=== PATIENT | female | born 1965 | race African-American/Black ===

== ENCOUNTER 2019-02-16 03:02 | Emergency (ER) | payer SELFPAY ==
[~2019-02-16] VITALS: Ht 170.2 cm; Wt 90.7 kg
[2019-02-16] MEDS ORDERED: ONDANSETRON PF 4 MG/2 ML VIAL. IV ONE (03:30)
[2019-02-16] MEDS ORDERED: MECLIZINE HCL 12.5 MG TABLET. PO ONE (03:30)
[2019-02-16] MEDS ORDERED: IV NORMAL SALINE 1000ML BAG 1,000 ML IV ONE (03:30)
[2019-02-16 04:34] LABS: BASO # 0.1 x10^3/uL (0.0-0.2); BASO % 1 % (0-3); EOS # 0.1 x10^3/uL (0.0-0.7); EOS % 2 % (0-3); HEMATOCRIT 40.9 % (36.0-47.0); HEMOGLOBIN 13.3 g/dL (12.0-15.5); LYMPH # 3.4 x10^3/uL (1.0-4.8); LYMPH % 44 % (24-48); MEAN CORPUSCULAR HEMOGLOBIN 28 pg (25-35); MEAN CORPUSCULAR HGB CONC 33 g/dL (31-37); MEAN CORPUSCULAR VOLUME 87 fL (79-100); MONO # 0.5 x10^3/uL (0.0-1.1); MONO % 6 % (0-9); NEUT # 3.7 x10^3uL (1.8-7.7); NEUT % 47 % (31-73); PLATELET COUNT 221 x10^3/uL (140-400); RED CELL DISTRIBUTION WIDTH 13.4 % (11.5-14.5); WHITE BLOOD COUNT 7.8 x10^3/uL (4.0-11.0)
[2019-02-16 04:43] LABS: CALCIUM 9.2 mg/dL (8.5-10.1); CREATININE 0.7 mg/dL (0.6-1.0); GFR 106.3; POTASSIUM 3.8 mmol/L (3.5-5.1)
[2019-02-16 04:44] LABS: BILIRUBIN,URINE NEGATIVE (NEG); CLARITY,URINE CLEAR; COLOR,URINE YELLOW; NITRITE,URINE NEGATIVE (NEG); PROTEIN,URINE NEGATIVE (NEG-TRACE)
[2019-02-16] MEDS ORDERED: IPRATRPIUM/ALBUTEROL 0.5/2.5MG 3 ML NEBU. NEB ONE ×2 (04:45→05:30)
[2019-02-16 04:49] LABS: ALBUMIN 3.2 g/dL (3.4-5.0); ALBUMIN/GLOBULIN RATIO 0.8 (1.0-1.7); TOTAL BILIRUBIN 0.2 mg/dL (0.2-1.0)
[2019-02-16 05:00] LABS: BACTERIA,URINE FEW /HPF (0-FEW); RBC,URINE OCC /HPF (0-2); SQUAMOUS EPITHELIAL CELL,UR FEW /LPF
[2019-02-16] MEDS ORDERED: KETOROLAC 15 MG/ML VIAL. IV ONE (05:30)
[2019-02-16] MEDS ORDERED: MECL25TA3 PO (05:47)
--- NOTE | 2019-02-16 05:52 | PHYS DOC ---
Past Medical History Past Medical History: Asthma, Diabetes-Type II Past Surgical History: Hysterectomy Alcohol Use: None Drug Use: None Adult General Chief Complaint Chief Complaint: BLOOD SUGAR PROBLEM HPI HPI Patient is a 54 year old female who presents brought in by ambulance with a chief, dizziness per chief complaint dizzy all day today it is worse when she lays down flat or moves her head in a certain way. Patient has no chest pain she has had some shortness of breath she has a history of asthma she's been little bit more short of breath than normal. No loss of consciousness she was worried because the blood sugar was elevated over 200 so she called 911 for evaluation given how she was feeling no vomiting no abdominal pain patient also has a headache Review of Systems Review of Systems Constitutional: Denies fever or chills [] Eyes: Denies change in visual acuity, redness, or eye pain [] Cardiovascular: No additional information not addressed in HPI [] Musculoskeletal: Denies back pain or joint pain [] Integument: Denies rash or skin lesions [] Neurologic: Denies , focal weakness or sensory changes [] All other systems were reviewed and found to be within normal limits, except as documented in this note. Current Medications Current Medications Current Medications Medications (Trade) Dose Ordered Sig/Brooke Start Time Stop Time Status Last Admin Dose Admin Albuterol/ Ipratropium (Duoneb) 3 ml 1X ONCE 02/16/19 05:30 02/16/19 05:31 DC 02/16/19 05:30 3 ML Ketorolac Tromethamine (Toradol 15mg Vial) 15 mg 1X ONCE 02/16/19 05:30 02/16/19 05:31 DC Lorazepam (Ativan) 0.5 mg 1X ONCE 02/16/19 05:30 02/16/19 05:31 DC Meclizine HCl (Antivert) 25 mg 1X ONCE 02/16/19 03:30 02/16/19 03:54 DC 02/16/19 04:32 25 MG Ondansetron HCl (Zofran) 4 mg 1X ONCE 02/16/19 03:30 02/16/19 03:54 DC 02/16/19 04:32 4 MG Sodium Chloride 1,000 ml @ 1,000 mls/hr 1X ONCE 02/16/19 03:30 02/16/19 04:29 DC 02/16/19 04:33 1,000 MLS/HR Allergies Allergies Allergies Coded Allergies Type Severity Reaction Last Updated Verified pneumococcal vaccine Allergy Mild Nausea and Vomiting 02/16/19 Yes Physical Exam Physical Exam Constitutional: Well developed, well nourished, no acute distress, non-toxic appearance. [] HENT: Normocephalic, atraumatic, bilateral external ears normal, oropharynx moist, no oral exudates, nose normal. [] Eyes: PERRLA, EOMI, conjunctiva normal, no discharge. [] Neck: Normal range of motion, no tenderness, supple, no stridor. [] Cardiovascular:Heart rate regular rhythm, no murmur [] Lungs & Thorax: Patient has wheezing bilateral lung kelsey otherwise speaking full sentences no accessory muscle use Abdomen: Bowel sounds normal, soft, no tenderness, no masses, no pulsatile masses. [] Skin: Warm, dry, no erythema, no rash. [] Back: No tenderness, no CVA tenderness. [] Extremities: No tenderness, no cyanosis, no clubbing, ROM intact, no edema. [] Neurologic: Alert and oriented X 3, normal motor function, normal sensory function, no focal deficits noted. [][id number] intact bilaterally extraocular movements are intact no nystagmus Psychologic: Affect normal, judgement normal, mood normal. [] Current Patient Data Vital Signs Vital Signs Date Time Temp Pulse Resp B/P (MAP) Pulse Ox O2 Delivery O2 Flow Rate FiO2 02/16/19 05:37 98 Room Air 02/16/19 03:02 98.8 19 18 131/88 (102) 98.8 Lab Values Laboratory Tests Test 02/16/19 03:08 02/16/19 04:30 Glucose (Fingerstick) 204 mg/dL (70-99) H White Blood Count 7.8 x10^3/uL (4.0-11.0) Red Blood Count 4.70 x10^6/uL (3.50-5.40) Hemoglobin 13.3 g/dL (12.0-15.5) Hematocrit 40.9 % (36.0-47.0) Mean Corpuscular Volume 87 fL (79-100) Mean Corpuscular Hemoglobin 28 pg (25-35) Mean Corpuscular Hemoglobin Concent 33 g/dL (31-37) Red Cell Distribution Width 13.4 % (11.5-14.5) Platelet Count 221 x10^3/uL (140-400) Neutrophils (%) (Auto) 47 % (31-73) Lymphocytes (%) (Auto) 44 % (24-48) Monocytes (%) (Auto) 6 % (0-9) Eosinophils (%) (Auto) 2 % (0-3) Basophils (%) (Auto) 1 % (0-3) Neutrophils # (Auto) 3.7 x10^3uL (1.8-7.7) Lymphocytes # (Auto) 3.4 x10^3/uL (1.0-4.8) Monocytes # (Auto) 0.5 x10^3/uL (0.0-1.1) Eosinophils # (Auto) 0.1 x10^3/uL (0.0-0.7) Basophils # (Auto) 0.1 x10^3/uL (0.0-0.2) Urine Collection Type Void Urine Color Yellow Urine Clarity Clear Urine pH 7.0 Urine Specific [place] 1.020 Urine Protein Negative mg/dL (NEG-TRACE) Urine Glucose (UA) Negative mg/dL (NEG) Urine Ketones (Stick) Negative mg/dL (NEG) Urine Blood Negative (NEG) Urine Nitrite Negative (NEG) Urine Bilirubin Negative (NEG) Urine Urobilinogen Dipstick 1.0 mg/dL (0.2 mg/dL) Urine Leukocyte Esterase Negative (NEG) Urine RBC Occ /HPF (0-2) Urine WBC 1-4 /HPF (0-4) Urine Squamous Epithelial Cells Few /LPF Urine Bacteria Few /HPF (0-FEW) Urine Mucus Slight /LPF Sodium Level 140 mmol/L (136-145) Potassium Level 3.8 mmol/L (3.5-5.1) Chloride Level 104 mmol/L (98-107) Carbon Dioxide Level 29 mmol/L (21-32) Anion Gap 7 (6-14) Blood Urea Nitrogen 11 mg/dL (7-20) Creatinine 0.7 mg/dL (0.6-1.0) Estimated GFR (Cockcroft-Gault) 106.3 BUN/Creatinine Ratio 16 (6-20) Glucose Level 226 mg/dL (70-99) H Calcium Level 9.2 mg/dL (8.5-10.1) Total Bilirubin 0.2 mg/dL (0.2-1.0) Aspartate Amino Transferase (AST) 22 U/L (15-37) Alanine Aminotransferase (ALT) 22 U/L (14-59) Alkaline Phosphatase 99 U/L (46-116) Troponin I Quantitative < 0.017 ng/mL (0.000-0.055) Total Protein 7.0 g/dL (6.4-8.2) Albumin 3.2 g/dL (3.4-5.0) L Albumin/Globulin Ratio 0.8 (1.0-1.7) L Lipase 124 U/L (73-393) Laboratory Tests 02/16/19 04:30 Laboratory Tests 02/16/19 04:30 EKG EKG []EKG shows a normal sinus rhythm rate of 86 no acute ischemic changes noted borderline ST change in V2 but does not meet criteria isolated lead only no STEMI is seen Radiology/Procedures Radiology/Procedures [] Impressions: Patient has no obvious evidence of pneumonia exam is somewhat limited by body habitus possible mild cardiomegaly Course & Med Decision Making Course & Med Decision Making Pertinent Labs and Imaging studies reviewed. (See chart for details) []54-year-old female prior history of asthma and diabetes who is presenting with some mild hyperglycemia and also a sensation of dizziness best described to me as vertigo room spinning with head position objective neurologic exam is normal there are no asymmetric findings. Patient is given IV fluids Toradol Ativan and meclizine in the ER with some improvement. Albuterol was also given for her wheezing chest x-ray did not show any definite pneumonia lab work was basically unremarkable except for the hyperglycemia she was encouraged to continue her insulin prescription for meclizine was provided reassurance was discussed no evidence of acute cardiac etiology with negative troponin and EKG after greater than 12 hours of symptoms Dragon Disclaimer Dragon Disclaimer This electronic medical record was generated, in whole or in part, using a voice recognition dictation system. Departure Departure Impression: Primary Impression: Dizziness Disposition: 01 HOME, SELF-CARE Condition: STABLE Patient Instructions: Dizziness, [id number] Scripts Meclizine Hcl (MECLIZINE HCL) 25 Mg Tablet 25 MG PO PRN TID PRN for DIZZINESS, #30 dizziness Prov: DORINA LONDON MD 02/16/19 DORINA LONDON MD Feb 16, 2019 05:52
[2019-02-16 07:00] VITALS: BP 131/87
[2019-02-16] MEDS ORDERED: PROCHLORPERAZINE 10 MG/2 ML VIAL. IV ONE (07:00)
[2019-02-16] MEDS ORDERED: diphenhydrAMINE 50 MG/ML VIAL IVP ONE (07:00)
--- NOTE | 2019-02-16 07:45 | RAD ---
CT of the head without contrast, 02/16/2019: HISTORY: Headache, dizziness, hypertension The ventricles are within normal limits in size. There is no shift of the midline structures. There is no evidence of acute intracranial hemorrhage or mass effect. IMPRESSION: No acute intracranial abnormality is detected. RS Compliance Statement: One or more of the following individualized dose reduction techniques were utilized for this examination: 1. Automated exposure control 2. Adjustment of the mA and/or kV according to patient size 3. Use of iterative reconstruction technique Electronically signed by: Perry Rios MD (02/16/2019 7:42 AM) [facility]
--- NOTE | 2019-02-16 08:00 | RAD ---
Single view of the chest. 02/16/2019 3:01 AM Indication: Shortness of breath Comparison: None Findings: Low lung volumes are noted which augment the cardiomediastinal silhouette and pulmonary vasculature. Patient's body habitus also somewhat limits exam. Left basilar atelectasis or small effusion not excluded. Mild central vascular congestion may be present. No pneumothorax is identified. Bony thorax is grossly intact. IMPRESSION: Somewhat limited study with possible mild left basilar atelectasis or trace effusion, and mild central vascular congestion. Consider follow-up two-view chest radiograph as clinically indicated Electronically signed by: Jean Paul Mauricio MD (02/16/2019 7:58 AM) [id number]
--- NOTE | 2019-02-16 09:01 | EKG ---
[facility] [address] [place] [id number] Test Date: 2019-02-16 Test Time: 03:15:26 Pat Name: TAMEKA LOZANO Department: Room: Gender: F Hr Associate: : 1965 Requested By: DORINA LONDON Order Number: [id number] Reading MD: Siddhartha Ward Measurements Intervals [place] Rate: 86 P: 44 VA: 140 QRS: 16 QRSD: 74 T: 34 QT: 358 QTc: 431 Interpretive Statements SINUS RHYTHM Electronically Signed On 02-20-2019 13:30:32 CDT by Siddhartha Ward
== END 2019-02-16 09:01 | disposition home or self-care (01) ==
LOC: ER 03:02
DX: R42 Dizziness and giddiness (principal); R06.02 Shortness of breath; R51 Headache; E11.9 Type 2 diabetes mellitus without complications; J45.909 Unspecified asthma, uncomplicated; Z88.7 Allergy status to serum and vaccine
CPT/HCPCS: 36415; 70450; 71045; 80053; 81001; 82962; 83690; 84484; 85025; 93005; 94640; 96361; 96374; 96375; 99285; J0780; J1200; J2060; J2405; J7030; J7620; J8597

== ENCOUNTER 2019-10-23 00:02 | Emergency (ER) | payer SELFPAY ==
[~2019-10-23] VITALS: Ht 167.6 cm; Wt 90.7 kg
[~2019-10-23 00:02] MED LIST: MECL25TA3 PO
[2019-10-23] MEDS ORDERED: IV NORMAL SALINE 1000ML BAG 1,000 ML IV ONE (00:30)
[2019-10-23] MEDS ORDERED: INSULIN REGULAR 100 UNIT/ML 3ML VIAL. SQ ONE (00:30)
[2019-10-23 00:54] LABS: BASO # 0.1 x10^3/uL (0.0-0.2); BASO % 1 % (0-3); EOS # 0.1 x10^3/uL (0.0-0.7); EOS % 2 % (0-3); HEMATOCRIT 40.4 % (36.0-47.0); HEMOGLOBIN 13.3 g/dL (12.0-15.5); LYMPH # 2.8 x10^3/uL (1.0-4.8); LYMPH % 44 % (24-48); MEAN CORPUSCULAR HEMOGLOBIN 28 pg (25-35); MEAN CORPUSCULAR HGB CONC 33 g/dL (31-37); MEAN CORPUSCULAR VOLUME 86 fL (79-100); MONO # 0.4 x10^3/uL (0.0-1.1); MONO % 7 % (0-9); NEUT % 46 % (31-73); PLATELET COUNT 244 x10^3/uL (140-400); RED BLOOD COUNT 4.71 x10^6/uL (3.50-5.40); RED CELL DISTRIBUTION WIDTH 13.9 % (11.5-14.5); WHITE BLOOD COUNT 6.4 x10^3/uL (4.0-11.0)
[2019-10-23 01:01] LABS: CALCIUM 9.5 mg/dL (8.5-10.1); CREATININE 0.8 mg/dL (0.6-1.0); GFR 91.1; POTASSIUM 3.7 mmol/L (3.5-5.1)
[2019-10-23 01:07] LABS: ALBUMIN 3.2 g/dL (3.4-5.0); ALBUMIN/GLOBULIN RATIO 0.7 (1.0-1.7); TOTAL BILIRUBIN 0.2 mg/dL (0.2-1.0); TOTAL PROTEIN 7.5 g/dL (6.4-8.2)
[2019-10-23 01:35] VITALS: BP 110/65
[2019-10-23] MEDS ORDERED: RANI300T PO (01:35)
[2019-10-23] MEDS ORDERED: ONDA4TAB7 PO (01:35)
--- NOTE | 2019-10-23 01:35 | PHYS DOC ---
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 She's also had elevated blood sugars. She denies any fever chills or sweats. She does state that she's had some nasal congestion and ear fullness and pain. She states she's been using drops for her ear pain but this has not been working. She feels like she has an ear infection. She does state that she has both Lantus and regular insulin that she uses as directed. She denies any abdominal discomfort. She denies any melena.[] Review of Systems Review of Systems Constitutional: Denies fever or chills [] Eyes: Denies change in visual acuity, redness, or eye pain [] HENT: Denies nasal congestion or sore throat [] Respiratory: Denies cough or shortness of breath [] Cardiovascular: No additional information not addressed in HPI [] GI: Per history of present illness[] : Denies dysuria or hematuria [] Musculoskeletal: Denies back pain or joint pain [] Integument: Denies rash or skin lesions [] Neurologic: Denies headache, focal weakness or sensory changes [] Endocrine: Reports polyuria and polydipsia[] All other systems were reviewed and found to be within normal limits, except as documented in this note. Current Medications Current Medications Current Medications Medications (Trade) Dose Ordered Sig/Brooke Start Time Stop Time Status Last Admin Dose Admin Insulin Human Regular (HumuLIN R VIAL) 10 unit 1X ONCE 10/23/19 00:30 10/23/19 00:31 DC 10/23/19 00:35 10 UNIT Sodium Chloride 1,000 ml @ 1,000 mls/hr 1X ONCE 10/23/19 00:30 10/23/19 01:29 DC 10/23/19 00:34 1,000 MLS/HR Allergies Allergies Allergies Coded Allergies Type Severity Reaction Last Updated Verified pneumococcal vaccine Allergy Mild Nausea and Vomiting 02/16/19 Yes Physical Exam Physical Exam Constitutional: Well developed, well nourished, no acute distress, non-toxic appearance. [] HENT: Normocephalic, atraumatic, bilateral external ears normal, oropharynx moist, no oral exudates, nose normal. [] Eyes: PERRLA, EOMI, conjunctiva normal, no discharge. [] Neck: Normal range of motion, no tenderness, supple, no stridor. [] Cardiovascular:Heart rate regular rhythm, no murmur [] Lungs & Thorax: Bilateral breath sounds clear to auscultation [] Abdomen: Bowel sounds normal, soft, no tenderness, no masses, no pulsatile masses. [] Skin: Warm, dry, no erythema, no rash. [] Back: No tenderness, no CVA tenderness. [] Extremities: No tenderness, no cyanosis, no clubbing, ROM intact, no edema. [] Neurologic: Alert and oriented X 3, normal motor function, normal sensory function, no focal deficits noted. [] Psychologic: Extremely anxious[] Current Patient Data Vital Signs Vital Signs Date Time Temp Pulse Resp B/P (MAP) Pulse Ox O2 Delivery O2 Flow Rate FiO2 10/23/19 00:11 98.2 104 16 147/90 (109) 99 Room Air 98.2 Lab Values Laboratory Tests Test 10/23/19 00:08 10/23/19 00:40 Glucose (Fingerstick) 463 mg/dL (70-99) H White Blood Count 6.4 x10^3/uL (4.0-11.0) Red Blood Count 4.71 x10^6/uL (3.50-5.40) Hemoglobin 13.3 g/dL (12.0-15.5) Hematocrit 40.4 % (36.0-47.0) Mean Corpuscular Volume 86 fL (79-100) Mean Corpuscular Hemoglobin 28 pg (25-35) Mean Corpuscular Hemoglobin Concent 33 g/dL (31-37) Red Cell Distribution Width 13.9 % (11.5-14.5) Platelet Count 244 x10^3/uL (140-400) Neutrophils (%) (Auto) 46 % (31-73) Lymphocytes (%) (Auto) 44 % (24-48) Monocytes (%) (Auto) 7 % (0-9) Eosinophils (%) (Auto) 2 % (0-3) Basophils (%) (Auto) 1 % (0-3) Neutrophils # (Auto) 3.0 x10^3/uL (1.8-7.7) Lymphocytes # (Auto) 2.8 x10^3/uL (1.0-4.8) Monocytes # (Auto) 0.4 x10^3/uL (0.0-1.1) Eosinophils # (Auto) 0.1 x10^3/uL (0.0-0.7) Basophils # (Auto) 0.1 x10^3/uL (0.0-0.2) Sodium Level 137 mmol/L (136-145) Potassium Level 3.7 mmol/L (3.5-5.1) Chloride Level 103 mmol/L (98-107) Carbon Dioxide Level 26 mmol/L (21-32) Anion Gap 8 (6-14) Blood Urea Nitrogen 15 mg/dL (7-20) Creatinine 0.8 mg/dL (0.6-1.0) Estimated GFR (Cockcroft-Gault) 91.1 BUN/Creatinine Ratio 19 (6-20) Glucose Level 435 mg/dL (70-99) H Calcium Level 9.5 mg/dL (8.5-10.1) Total Bilirubin 0.2 mg/dL (0.2-1.0) Aspartate Amino Transferase (AST) 8 U/L (15-37) L Alanine Aminotransferase (ALT) 12 U/L (14-59) L Alkaline Phosphatase 126 U/L (46-116) H Total Protein 7.5 g/dL (6.4-8.2) Albumin 3.2 g/dL (3.4-5.0) L Albumin/Globulin Ratio 0.7 (1.0-1.7) L Laboratory Tests 10/23/19 00:40 Laboratory Tests 10/23/19 00:40 EKG EKG [] Radiology/Procedures Radiology/Procedures [] Course & Med Decision Making Course & Med Decision Making Pertinent Labs and Imaging studies reviewed. (See chart for details) [ED course: Evaluation reveals a 54-year-old female with the above described complaints. She was given IV fluids and regular insulin during her stay here. Her electrolytes other than her blood sugar appear completely normal. I've encouraged her to follow with her primary care physician at her earliest conveni dario however in the meantime she needs to continue her insulin as previously prescribed. Given the fact that she has had a little nausea and some blood- tinged emesis. Her on Zantac as well as some Zofran.] Britta Disclaimer Britta Disclaimer This electronic medical record was generated, in whole or in part, using a voice recognition dictation system. Departure Departure Impression: Primary Impression: Hyperglycemia Disposition: HOME, SELF-CARE Condition: STABLE Referrals: UNKNOWN PCP NAME (PCP) Patient Instructions: Hyperglycemia Additional Instructions: Follow with your primary care physician this week for recheck. Return to the emergency department with any new or concerning symptoms Scripts Ranitidine Hcl (RANITIDINE HCL) 300 Mg Tablet 1 TAB PO QHS for gastritis, #30 TAB 11 Refills Prov: IMANI SINGER DO 10/23/19 Ondansetron Hcl (ZOFRAN) 4 Mg Tablet 1 TAB PO Q8HRS PRN for NAUSEA, #20 TAB Prov: IMANI SINGER DO 10/23/19 IMANI SINGER DO Oct 23, 2019 01:35
== END 2019-10-23 01:45 | disposition home or self-care (01) ==
LOC: ER 00:02
DX: R73.9 Hyperglycemia, unspecified (principal); R11.2 Nausea with vomiting, unspecified; J45.909 Unspecified asthma, uncomplicated; E11.9 Type 2 diabetes mellitus without complications; Z90.710 Acquired absence of both cervix and uterus; Z98.890 Other specified postprocedural states; Z88.7 Allergy status to serum and vaccine; Z79.4 Long term (current) use of insulin
CPT/HCPCS: 36415; 80053; 82962; 85025; 96360; 96372; 99284; J1815; J7030